=== PATIENT | female | born 1985 | race Asian ===

== ENCOUNTER 2020-01-13 08:50 | Emergency (ER) | payer MEDICAID ==
[~2020-01-13] VITALS: Ht 157.5 cm; Wt 74.8 kg
[2020-01-13 09:16] VITALS: BP 118/80
[2020-01-13] MEDS ORDERED: IBUPROFEN 800 MG TAB PO ONE (09:45)
== END 2020-01-13 10:17 | disposition home or self-care (01) ==
LOC: ER 08:50
DX: S93.402A Sprain of unspecified ligament of left ankle, initial encounter (principal); W18.39XA Other fall on same level, initial encounter; Y93.89 Activity, other specified; Y92.89 Other specified places as the place of occurrence of the external cause; Y99.8 Other external cause status
CPT/HCPCS: 73610; 73630